=== PATIENT | male | born 1950 | race Caucasian/White ===

== ENCOUNTER 2021-01-17 08:36 | Outpatient (CLI) | payer MEDICARE, OTHER | END 2021-01-17 08:37 | disposition home or self-care (01) | LOC: MERGE 08:36 → CSHNM 08:36 | PROVIDERS: ATTEND Urology | DX: C61 Malignant neoplasm of prostate (principal); R97.20 Elevated prostate specific antigen [PSA]; N18.30 Chronic kidney disease, stage 3 unspecified; R31.29 Other microscopic hematuria; N28.89 Other specified disorders of kidney and ureter; N28.1 Cyst of kidney, acquired | CPT/HCPCS: 74178; 78306; 82565; A9503 ==

== ENCOUNTER 2021-02-12 11:37 | Outpatient (CLI) | payer MEDICARE, OTHER | END 2021-02-12 11:38 | disposition home or self-care (01) | LOC: CSHMRI 11:37 | PROVIDERS: ATTEND Urology | DX: C61 Malignant neoplasm of prostate (principal); N28.89 Other specified disorders of kidney and ureter; Z03.89 Encounter for observation for other suspected diseases and conditions ruled out | CPT/HCPCS: 71260; 72197; 82565 ==